=== PATIENT | female | born 1940 | race Caucasian/White ===

== ENCOUNTER → 2016-03-12 | Outpatient (CLI) | payer MEDICARE, BC ==
[2016-03-12 08:31] LABS: CHCM 32.1; HCT 38.7 % (34.0-46.0); HDW 2.47; HGB 12.3 gm/dL (11.4-16.0); MCH 28.8 pg (25.0-35.0); MCHC 31.8 g/dL (31.0-37.0); MCV 90.6 fL (80.0-100.0); Mean Platelet Volume 7.7; RBC 4.27 m/uL (3.80-5.40); RDW 12.9 % (11.5-15.5); WBC 6.6 k/uL (3.8-10.6)
[2016-03-12 10:03] LABS: Erythrocyte Sedimentation Rate 6 mm/hr (0-20)
== END | disposition home or self-care (01) ==
LOC: LABWHC1 07:44
PROVIDERS: ATTEND Orthopaedic Surgery
DX: Z96.611 Presence of right artificial shoulder joint (principal); Z48.89 Encounter for other specified surgical aftercare
CPT/HCPCS: 36415; 83520; 85027; 85652; 86140

== ENCOUNTER → 2016-05-27 | Outpatient (CLI) | payer MEDICARE, BC ==
[2016-05-27 08:20] LABS: Calcium 10.3 mg/dL (8.4-10.2); Potassium 4.2 mmol/L (3.5-5.1)
== END | disposition home or self-care (01) ==
LOC: LABWHC1 07:42
PROVIDERS: ATTEND Nurse Practitioner Family
DX: N18.3 Chronic kidney disease, stage 3 (moderate) (principal)
CPT/HCPCS: 36415; 80048

== ENCOUNTER → 2016-10-29 | Outpatient (CLI) | payer MEDICARE, BC ==
[2016-10-29 15:33] LABS: Appearance,Urine Clear (Clear); Basophils # (A) 0.1 k/uL (0-0.2); Basophils % (A) 1 %; Bilirubin,Urine Negative (Negative); CHCM 34.6; Eosinophils # (A) 0.4 k/uL (0-0.7); Eosinophils % (A) 5 %; Glucose,Urine (UA) Negative (Negative); HCT 37.5 % (34.0-46.0); HDW 2.61; HGB 12.5 gm/dL (11.4-16.0); Ketones,Urine Negative (Negative); Leukocyte Esterase,Urine Negative (Negative); Luc # (Auto) 0.16; Luc % (Auto) 2; Lymphocytes # (A) 2.2 k/uL (1.0-4.8); Lymphocytes % (A) 28 %; MCH 28.9 pg (25.0-35.0); MCHC 33.2 g/dL (31.0-37.0); Mean Platelet Volume 7.6; Monocytes # (A) 0.4 k/uL (0-1.0); Monocytes % (A) 5 %; Neutrophils # (A) 4.6 k/uL (1.3-7.7); Neutrophils % (A) 59 %; Nitrite,Urine Negative (Negative); PH, Urine 6.5 (5.0-8.0); Protein,Urine Negative (Negative); RBC 4.31 m/uL (3.80-5.40); RDW 13.7 % (11.5-15.5); Specific Gravity,Urine 1.004 (1.001-1.035); UA Billing (MACRO vs. MICRO) CHEM; Urobilinogen,Urine <2.0 mg/dL (<2.0); WBC 7.9 k/uL (3.8-10.6)
[2016-10-29 15:46] LABS: Calcium 9.9 mg/dL (8.4-10.2); Phosphorous 3.3 mg/dL (2.5-4.5); Potassium 4.1 mmol/L (3.5-5.1); Uric Acid 6.2 mg/dL (3.7-7.4)
[2016-10-29 15:55] LABS: % Iron Saturation 17.5 % (20-50)
== END | disposition home or self-care (01) ==
LOC: LABWHC1 15:10
PROVIDERS: ATTEND Nurse Practitioner Family
DX: N18.3 Chronic kidney disease, stage 3 (moderate) (principal); N39.0 Urinary tract infection, site not specified; D64.9 Anemia, unspecified; E21.3 Hyperparathyroidism, unspecified; M10.9 Gout, unspecified
CPT/HCPCS: 36415; 80048; 81003; 82306; 82728; 83540; 83550; 83735; 83970; 84100; 84550; 85025

== ENCOUNTER 2017-12-24 17:21 | Emergency (ER) | payer MEDICARE, BC ==
[2017-12-24 17:39] VITALS: BP 131/62; PULSE 64; RESP 20; TEMP 98.3
[2017-12-24] MEDS ORDERED: DIPH,PERTUS(ACELL)TETVAC-LF 0.5 ML VIAL IM ONE (17:40)
[2017-12-24] MEDS ORDERED: GELATIN SPONGE,ABSORB (LARGE) 1 EACH SPONGE TOPICAL STA (17:50)
--- NOTE | 2017-12-24 17:56 | ED ---
Wound/Laceration HPI - General Chief Complaint: Wound/Laceration Stated Complaint: finger laceration Time Seen by Provider: 12/24/17 17:39 Source: patient, RN notes reviewed Mode of arrival: ambulatory Limitations: no limitations - History of Present Illness Initial Comments: This is a 77-year-old female who presents to the emergency department with chief complaint of left thumb laceration. Patient states approximately half an hour prior to arrival she was removing a bolt from her lawnmower. She states that she slipped and cut a piece off of her left thumb. Patient is unsure when the last time she had her tetanus updated. She denies any other injuries or trauma. States that she takes a baby aspirin daily but no anticoagulants. Denies fevers or chills, chest pain or shortness breath, nausea or vomiting, numbness or tingling. - Related Data Home Medications Medication Instructions Recorded Confirmed Aspirin EC [Ecotrin] 81 mg PO BID 06/24/14 11/26/15 Atenolol [Tenormin] 50 mg PO BID 06/24/14 11/26/15 Atorvastatin [Lipitor] 40 mg PO HS 06/24/14 11/26/15 Cholecalciferol [Vitamin D3] 1,000 unit PO DAILY@1200 06/24/14 11/26/15 Gabapentin [Neurontin] 100 mg PO BID 06/24/14 11/26/15 Gemfibrozil [Lopid] 600 mg PO BID 06/24/14 11/26/15 amLODIPine [Norvasc] 5 mg PO BID 06/24/14 11/26/15 Albuterol Inhaler [Ventolin Hfa 1 - 2 puff INHALATION RT-Q6H PRN 06/07/15 Inhaler] Benazepril/Hydrochlorothiazide 1 tab PO DAILY 06/07/15 11/26/15 [Benazepril-Hctz 20-12.5 mg Tab] Budesonide/Formoterol Fumarate 2 puff INHALATION RT-BID PRN 06/07/15 11/26/15 [Symbicort 80-4.5 Mcg Inhaler] Carboxymethylcellulose Sodium 1 drop BOTH EYES HS 06/07/15 11/26/15 [Refresh Tears] Latanoprost Ophth [Xalatan 0.005%] 1 drops BOTH EYES HS 06/07/15 11/26/15 Acetaminophen [Tylenol Arthritis] 650 mg PO BID PRN 11/13/15 11/26/15 Previous Rx's Medication Instructions Recorded Docusate [Colace] 100 mg PO BID #60 capsule 11/27/15 HYDROcodone/APAP 7.5-325MG [[place] 1 - 2 each PO Q6HR PRN #90 tab 11/27/15 7.5-325] Allergies Allergy/AdvReac Type Severity Reaction Status Date / Time erythromycin base Allergy Unknown Verified 12/24/17 17:39 niacin Allergy Rash/Hives Verified 12/24/17 17:39 nickel Allergy per Verified 12/24/17 17:39 allergy testing Penicillins Allergy Anaphylaxis Verified 12/24/17 17:39 doxycycline AdvReac Nausea & Verified 12/24/17 17:39 Vomiting Review of Systems ROS Statement: Those systems with pertinent positive or pertinent negative responses have been documented in the HPI. ROS Other: All systems not noted in ROS Statement are negative. Past Medical History Past Medical History: COPD, Eye Disorder, Hyperlipidemia, Hypertension, Musculoskeletal Disorder, Osteoarthritis (OA) Additional Past Medical History / Comment(s): spinal stenosis,past hx. heart murmur, neuropathy, glaucoma, decreased kidney function-sees Dr Ramos, recent tx. for UTI in August History of Any Multi-Drug Resistant Organisms: None Reported Past Surgical History: Back Surgery, Cholecystectomy, Orthopedic Surgery Additional Past Surgical History / Comment(s): rotator cuff repair right, TRS Past Anesthesia/Blood Transfusion Reactions: No Reported Reaction Past Psychological History: No Psychological Hx Reported Smoking Status: Former smoker Past Alcohol Use History: None Reported Past Drug Use History: None Reported - Past Family History Mother Family Medical History: Cancer Brother(s) Family Medical History: Cancer General Exam - General Exam Comments Initial Comments: General: Awake and alert, well-developed; in no apparent distress. HEENT: Head atraumatic, normocephalic. Pupils are equal, round and reactive to light. Extraocular movements intact. Oropharynx moist without erythema or exudate. Neck: Supple. Normal ROM. Cardiovascular: Regular rate and rhythm. No murmurs, rubs or gallops. Chest symmetrical. Respiratory: Lungs clear to auscultation bilaterally. No wheezes, rales or rhonchi. Normal respiratory effort with no use of accessory muscles. Musculoskeletal: Normal ROM of the left thumb. Approximately 0.5cm superficial skin avulsion to the distal lateral palmar surface left thumb. Sensation is intact. Radial pulses are 2+ equal and palpable bilaterally. Skin: [place], warm and dry with skin avulsion as noted above. Neurological: Alert and oriented x3. CN II-XII grossly intact. Speech is fluent and answers are appropriate. No focal neuro deficits. Psychiatric: Normal mood and affect. No overt signs of depression or anxiety noted. Limitations: no limitations Course Vital Signs 12/24/17 17:37 Temperature 98.3 F Pulse Rate 64 Respiratory 20 Rate Blood Pressure 131/62 O2 Sat by Pulse 97 Oximetry Medical Decision Making - Medical Decision Making This is a 77-year-old female who presents to the emergency department with chief complaint of left thumb laceration. Patient sustained an approximately 0.5 cm in length superficial skin avulsion to the distal left thumb. Wound is cleansed with sterile water and iodine. Gelfoam and a dressing is placed. Recommended leaving on for 2-3 days. Patient is made up-to-date with tetanus vaccination. She is in no acute distress and will be discharged this time. She is in agreement with plan and voices understanding. All questions were answered. Disposition Clinical Impression: Avulsion of skin of finger Disposition: HOME SELF-CARE Condition: Good Instructions: Skin Avulsion (ED) Additional Instructions: Please keep the Gelfoam and dressing in place for up to 76 hours. Please follow up with primary care provider within 1-2 days. Return to emergency department if symptoms should worsen or any concerns arise. Is patient prescribed a controlled substance at d/c from ED?: No Referrals: Aris Fuchs DO [Primary Care Provider] - 1-2 days Time of Disposition: 18:08
== END 2017-12-24 18:27 | disposition home or self-care (01) ==
LOC: EC 17:21
DX: S61.012A Laceration without foreign body of left thumb without damage to nail, initial encounter (principal); E78.5 Hyperlipidemia, unspecified; I10 Essential (primary) hypertension; J44.9 Chronic obstructive pulmonary disease, unspecified; G62.9 Polyneuropathy, unspecified; M19.90 Unspecified osteoarthritis, unspecified site; H40.9 Unspecified glaucoma; Z87.891 Personal history of nicotine dependence; Z88.0 Allergy status to penicillin; Z88.1 Allergy status to other antibiotic agents; Z88.8 Allergy status to other drugs, medicaments and biological substances; Z91.048 Other nonmedicinal substance allergy status; Z79.82 Long term (current) use of aspirin; Z79.899 Other long term (current) drug therapy; Z23 Encounter for immunization; W45.8XXA Other foreign body or object entering through skin, initial encounter; Y93.89 Activity, other specified; Y92.89 Other specified places as the place of occurrence of the external cause
CPT/HCPCS: 90471; 90715; 99282

== ENCOUNTER → 2018-05-31 | Outpatient (CLI) | payer MEDICARE, BC ==
--- NOTE | 2018-05-31 12:36 | CT ---
EXAMINATION TYPE: CT brain wo/w con DATE OF EXAM: 05/31/2018 COMPARISON: None. HISTORY: Headaches on and off for 7 months. No history of migraines. No known injury. CT DLP: 2279 mGycm Automated exposure control for dose reduction was used. CONTRAST: CT scan of the head is performed without and with IV Contrast, patient injected with 50 mL of Isovue 300. FINDINGS: Noncontrast images show no acute intracranial hemorrhage or midline shift. There is mild ventricular and sulcal prominence. Postcontrast images show no suspicious enhancing intraparenchymal mass. There is absent or hypoplastic right A1 segment with filling of right A2 segment due to patent anterior com municating artery, normal variant. Some mild low-attenuation in periventricular white matter is prese nt. There is completely opacified right maxillary sinus with heterogeneous material and ossification. Remainder of paranasal sinuses are clear. Persistent anterior metopic suture is seen. High left fron william parietal region there is ossific prominence could reflect ossified meningioma or osteochondroma a xial image 44 and coronal image 36. This measures roughly 2.5 x 1.6 cm axial image 44 IMPRESSION: As above. Right maxillary sinus disease noted. High left parietal osteochondroma or ossif ied meningioma noted.
== END | disposition home or self-care (01) ==
LOC: RADCTMAIN 10:24
PROVIDERS: ATTEND Family Medicine
DX: D16.4 Benign neoplasm of bones of skull and face (principal); Z13.9 Encounter for screening, unspecified
CPT/HCPCS: 82565; 84520; 70470; 36415; Q9967

== ENCOUNTER → 2018-10-11 | Outpatient (CLI) | payer MEDICARE, BC ==
--- NOTE | 2018-10-12 02:30 | MR ---
EXAMINATION TYPE: MR brain wo con DATE OF EXAM: 10/11/2018 COMPARISON: 06/10/2018 HISTORY: Abnormal findings Weakness Standard multiplanar, multisequence MRI departmental protocol Multiplanar, multisequence images of the brain were acquired. Diffusion weighted imaging was performe d. FINDINGS: There is cerebral cortical atrophy. There is no mass effect nor midline shift. There is no sign of intracranial hemorrhage. There is some coalescent punctate areas of signal loss measuring 4 x 1.5 cm in the left posterior parietal lobe convexity. This appears extra-axial and could relate to v ascular malformation and calcification. There is no evidence of adjacent cerebral edema. There is muc osal thickening right maxillary sinus. Brainstem is intact. Corpus callosum is intact. Sella turcica appears normal. On the FLAIR images there are a few scattered foci of increased signal around the lateral ventricles that measure up to 5 mm. Total number is less than 10. IMPRESSION: Cerebral atrophy. Right maxillary sinusitis. Nonspecific scattered periventricular white matter foci. Low signal left parietal lesion could relate to a vascular malformation unchanged compared to old MR scan. Lesion appears benign.
== END | disposition home or self-care (01) ==
LOC: RADMRIMAIN 09:24
PROVIDERS: ATTEND Family Medicine
DX: G31.9 Degenerative disease of nervous system, unspecified (principal); R90.89 Other abnormal findings on diagnostic imaging of central nervous system
CPT/HCPCS: 70551

== ENCOUNTER → 2019-01-06 | Outpatient (CLI) | payer MEDICARE, BC ==
--- NOTE | 2019-01-07 04:24 | XR ---
EXAMINATION TYPE: XR lumbar spine 2 or 3V DATE OF EXAM: 01/06/2019 COMPARISON: NONE HISTORY: 78-year-old female with low back pain TECHNIQUE: 3 views FINDINGS: Degenerated levoconvex scoliosis of the lumbar spine. 5 lumbar type vertebral bodies. The degree of c urvature limits the assessment but there appears to be moderate to severe disc height loss at L3-S1 l evels with endplate spondylosis. Facet arthropathy throughout. Vertebral body heights are preserved a nd alignment is maintained. Dense atherosclerotic calcifications throughout the abdominal aorta. IMPRESSION: 1. Degenerated levoconvex scoliosis. 2. Hypertrophic facet arthropathy throughout. No vertebral compression collapse or malalignment. 3. Moderate to advanced degenerative disc disease L3-S1 levels.
== END | disposition home or self-care (01) ==
LOC: RADXRMAIN 16:18
PROVIDERS: ATTEND Family Medicine
DX: M51.37 Other intervertebral disc degeneration, lumbosacral region (principal); M46.96 Unspecified inflammatory spondylopathy, lumbar region; M41.86 Other forms of scoliosis, lumbar region
CPT/HCPCS: 72100

== ENCOUNTER → 2019-09-14 | Outpatient (CLI) | payer MEDICARE, BC ==
--- NOTE | 2019-09-14 12:29 | MR ---
EXAMINATION TYPE: MR brain wo con DATE OF EXAM: 09/14/2019 9:06 AM COMPARISON: 10/11/2018 HISTORY: Known Menengioma, Headaches, Dizziness and Ringing in Ears. Multiplanar and multispin-echo imaging of the brain was performed . The ventricles, basal cisterns and sulci overlying the cerebral convexities demonstrate mild enlargem ent. Remote deep white matter insults. High left parietal extra-axial lesion is redemonstrated measures 4.2 by 2.0 x 0.8 cm versus 4 x 1.5 c m previously. Patient has known meningioma. Acute intracranial hemorrhage or extra-axial collection is not evident. The brain parenchyma reveals no abnormal increased signal. No acute edema is identified. Chronic sinusitis changes. Mastoid air cells are well-aerated. IMPRESSION: No change in known meningioma.
== END | disposition home or self-care (01) ==
LOC: RADMRIMAIN 08:19
PROVIDERS: ATTEND Family Medicine
DX: D32.0 Benign neoplasm of cerebral meninges (principal)
CPT/HCPCS: 70551

== ENCOUNTER → 2020-08-27 | Outpatient (CLI) | payer MEDICARE, BC ==
--- NOTE | 2020-08-28 00:42 | MR ---
EXAMINATION TYPE: MR brain wo con DATE OF EXAM: 08/27/2020 COMPARISON: 09/14/2019 HISTORY: Benign neoplasm cerebral meninges Multiplanar multiecho imaging of the brain was performed without contrast. There is diffuse cerebral atrophy. There is no mass effect nor midline shift. There is no sign of int racranial hemorrhage. Diffusion images show no evidence of an acute infarct. There is mild increased signal around the lateral ventricles in the white matter on the T2 and FLAIR images. This is concentr ated mainly around the occipital horns and frontal horns of the lateral ventricles. This measures up to 8 mm in thickness. The brainstem appears intact. Cerebellum appears intact. Sella turcica appears intact. Corpus callosu m is intact. IMPRESSION: Cerebral atrophy. No evidence of an acute infarct. Mild periventricular white matter changes are nonspecific. This could relate to some microvascular is chemia or demyelinating disease. Brain appears not significantly different than old exam.
== END | disposition home or self-care (01) ==
LOC: RADMRIMAIN 07:20
PROVIDERS: ATTEND Family Medicine
DX: D32.0 Benign neoplasm of cerebral meninges (principal); G31.9 Degenerative disease of nervous system, unspecified
CPT/HCPCS: 70551

== ENCOUNTER → 2020-09-26 | Day surgery (SDC) | payer MEDICARE, BC ==
[2020-09-25 08:59] VITALS: BMI 26.5
[~2020-09-26] MED LIST: BALANCED SALT IRRIG SOLN COMB2 15 ML IRRIG.SOLN INTRAOCULA ONE; CYCLOPENTOLATE 1% OPHTH SOLN 2 ML BTL OP PRN; CYCLOPENTOLATE 1% OPHTH SOLN 2 ML BTL RIGHT EYE ONE; DUOVISC KIT (GREEN BOX) INTRAOCULA ONE; EPINEPHrine (PF) 0.3 ML in BALANCED SALT IRRIG SOLN COMB2 500 ML IRRIGATION ONE; LACTATED RINGERS 1,000 ML IV SCH; LIDOCAINE 1% (10MG/ML) FOR IV START INTRADERMA PRN; LIDOCAINE 1% (PF) 10MG/ML VIAL SQ ONE; MIDAZOLAM 2 MG/2 ML VIAL ONE; MOXIFLOXACIN HCL 0.5% DROPS 3 ML BTL OP PRN; PHENYLEPHRINE 2.5% OPHTH DRP 2ML OP PRN; PILOCARPINE 2% OPHTH DROPS 15 ML BTL RIGHT EYE SCH; TETRACAINE 0.5% OPHTH (PF) DROPS 4 ML BTL OP PRN; TIMOLOL 0.5% OPHTH DROPS 5 ML BTL OP PRN; TRYPAN BLUE 0.06% SYRINGE 0.5 ML SYRINGE INTRAOCULA ONE; fentaNYL (PF) 50 MCG/ML 2 ML AMP ONE
[2020-09-26 07:40] VITALS: RESP 16; TEMP 97.3
--- NOTE | 2020-09-26 08:40 | P.OP ---
Date of Procedure: 09/26/20 Preoperative Diagnosis: NS & POAG mild Postoperative Diagnosis: same Procedure(s) Performed: PIOL, & goniotomy Implants: MX60E 20.50 Anesthesia: MAC Surgeon: Dedrick Hardy Pathology: none sent Condition: stable Disposition: same day Indications for Procedure: blurry vision and glaucoma control Operative Findings: no complications
[2020-09-26 09:12] VITALS: BP 158/68; PULSE 54
--- NOTE | 2020-09-27 09:19 | OP ---
OPERATIVE REPORT DATE OF SURGERY: September 26, 2020 PROCEDURES: Phacoemulsification of cataract and intraocular lens implant of the right eye with goniotomy. 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 SURGEON: Dr. Dedrick Hardy. ANESTHESIA: Topical. ESTIMATED BLOOD LOSS: Less than 5 mL. SPECIMEN TAKEN: None. NARRATIVE: After obtaining the appropriate consent, the patient was brought to the operating room. She was placed under cardiac monitoring, then prepped and draped in the usual sterile manner. She was approached from her right temporal side and at the 11 o'clock position an MVR blade was used to create a paracentesis port. Through this opening, 1% Xylocaine MPF 50:50 mix with balanced salt solution was injected into the anterior chamber. This was followed by installation of Trypan blue which was allowed to stay in the eye for about 1 minute. This was irrigated away with balanced salt solution and the anterior chamber was then stabilized with Viscoat. A temporal incision with a 2.5 mm keratome was used to create a self-sealing corneal flap incision. The patient was then asked to rotate her head approximately 45 degrees to her left and Gonio prism was placed on the patient's eye. Identification of the trabecular meshwork was easily made and using a ricardo and meet method, a goniotomy knife was used to create a goniotomy between the clock hours of approximately 4:30 and 1 o'clock on the nasal aspect of the patient's eye. A small amount of bleeding was encountered as would typically be expected. The patient was then asked to rotate her head back to the normal supine position and a cystotome was introduced to begin a continuous tear capsulorrhexis which was completed using the Utrata forceps. Hydrodissection and hydrodelineation of the lens were accomplished with balanced salt solution. Phacoemulsification of the lens utilizing phaco chop was accomplished in 28.1 seconds at 12% power. Additional Xylocaine MPF was instilled into the anterior chamber. This was followed by removal of the remaining cortex along with careful polishing of the posterior capsule in the capsule vacuum mode. Additional Provisc was then used to stabilize the capsular bag and a Bausch and Lomb MX60E 20.5 diopter posterior chamber intraocular lens was then injected into the capsular bag without difficulty. The remaining viscoelastic was removed from in and around the intraocular lens and the anterior chamber. The temporal incision was confirmed watertight and the eye was brought to slightly above normal intra-ocular pressure by palpation with balanced salt solution from the paracentesis port. She then received 2 drops of 0.5% timolol followed by 2 drops of moxifloxacin as well as 2% pilocarpine. She was then lightly patched and shielded in the usual manner. She was then returned to recovery in good condition. MMYOUNG / IJN: [id number] /
== END ==
LOC: OR 06:59
PROVIDERS: ATTEND Ophthalmology
DX: H25.11 Age-related nuclear cataract, right eye (principal); I10 Essential (primary) hypertension; E78.5 Hyperlipidemia, unspecified; J44.9 Chronic obstructive pulmonary disease, unspecified; M48.00 Spinal stenosis, site unspecified
CPT/HCPCS: 65820; C1780; J2250; J0171; J3010; J2001

== ENCOUNTER 2020-10-10 09:54 | Day surgery (SDC) | payer MEDICARE, BC ==
[2020-10-08 11:47] VITALS: BMI 26.5
[~2020-10-10 09:54] MED LIST changes: -BALANCED SALT IRRIG SOLN COMB2 15 ML IRRIG.SOLN INTRAOCULA ONE; -CYCLOPENTOLATE 1% OPHTH SOLN 2 ML BTL RIGHT EYE ONE; -DUOVISC KIT (GREEN BOX) INTRAOCULA ONE; -EPINEPHrine (PF) 0.3 ML in BALANCED SALT IRRIG SOLN COMB2 500 ML IRRIGATION ONE; -LIDOCAINE 1% (10MG/ML) FOR IV START INTRADERMA PRN; -LIDOCAINE 1% (PF) 10MG/ML VIAL SQ ONE; -MIDAZOLAM 2 MG/2 ML VIAL ONE; +PILOCARPINE 2% OPHTH DROPS 15 ML BTL OP PRN; -PILOCARPINE 2% OPHTH DROPS 15 ML BTL RIGHT EYE SCH; -TRYPAN BLUE 0.06% SYRINGE 0.5 ML SYRINGE INTRAOCULA ONE; -fentaNYL (PF) 50 MCG/ML 2 ML AMP ONE
[2020-10-10 10:40] VITALS: RESP 16; TEMP 97.1
[2020-10-10] MEDS ORDERED: LIDOCAINE 1% (10MG/ML) FOR IV START INTRADERMA ONE (10:43)
[2020-10-10] MEDS ORDERED: MIDAZOLAM 2 MG/2 ML VIAL ONE (11:20)
[2020-10-10] MEDS ORDERED: fentaNYL (PF) 50 MCG/ML 2 ML AMP ONE (11:20)
[2020-10-10] MEDS ORDERED: HYALURONATE SODIUM INTRAOCULAR 1 EACH SYRINGE (12MG/ML) INTRAOCULA ONE (11:38)
[2020-10-10] MEDS ORDERED: BALANCED SALT IRRIG SOLN COMB2 15 ML IRRIG.SOLN IRRIGATION ONE (11:39)
[2020-10-10] MEDS ORDERED: LIDOCAINE 1% (PF) 10MG/ML VIAL MISCELLANE ONE (11:39)
[2020-10-10] MEDS ORDERED: EPINEPHrine (PF) 0.3 ML in BALANCED SALT IRRIG SOLN COMB2 500 ML IRRIGATION ONE (11:42)
--- NOTE | 2020-10-10 11:58 | P.OP ---
Date of Procedure: 10/10/20 Preoperative Diagnosis: NS & POAG moderate Postoperative Diagnosis: same Procedure(s) Performed: PIOL & goniotomy, OS Implants: MX60E 22.50 Anesthesia: MAC Surgeon: Dedrick Hardy Pathology: none sent Condition: stable Disposition: same day Indications for Procedure: blurry visoin and improved glaucoma control Operative Findings: no complications
[2020-10-10 12:12] VITALS: PULSE 52
[2020-10-10 12:18] VITALS: BP 161/69
--- NOTE | 2020-10-10 19:48 | OP ---
OPERATIVE REPORT DATE OF SURGERY: October 10, 2020 PROCEDURES: Phacoemulsification of cataract and intraocular lens implant of the left eye with goniotomy. PREOPERATIVE DIAGNOSES: Nuclear sclerosis and primary open-angle glaucoma, moderate stage. POSTOPERATIVE DIAGNOSES: Nuclear sclerosis and primary open-angle glaucoma, moderate stage. SURGEON: Dr. Dedrick Hardy. ANESTHESIA: Topical. ESTIMATED BLOOD LOSS: Less than 5 mL. SPECIMEN TAKEN: None. NARRATIVE: After obtaining the appropriate consent, the patient was brought to the operating room. There she was placed under cardiac monitoring, prepped and draped in the usual sterile manner. She was approached from her left temporal side. At the 5 o'clock position, an MVR blade was used to create a paracentesis port. Through this opening 1% Xylocaine MPF was instilled into the anterior chamber. This was followed by installation of Trypan blue which was irrigated away after 1 minute. Viscoat was then used to stabilize the anterior chamber. At the 3 o'clock position a 2.5 mm keratome was used to create a self- sealing corneal flap incision. At this point, the patient was asked to rotate her head approximately 45 degrees to her right while maintaining a gaze in that general direction. Using a [place] dual blade goniotomy knife and using a ricardo and meet method the nasal trabecular meshwork was incised and removed for approximately 5 o'clock hours on the nasal side of the patient's eye. Moderate bleeding occurred at the incision site as would normally be expected. She was then asked to rotate back to the normal supine position. Additional viscoelastic was used to tamponade the bleeding and maintain clear in the anterior chamber. A cystotome was introduced to begin a continuous tear capsulorrhexis which was then completed using the Utrata forceps. Hydrodissection and hydrodelineation of the lens were accomplished with balanced salt solution. Phacoemulsification of the lens utilizing phaco chop was accomplished in 13.07 seconds at 15% power. Additional lidocaine MPF was instilled into the anterior chamber. This was followed by removal of the remaining cortex as well as careful polishing of the posterior capsule in capsule vacuum mode. Additional Amvisc was then used to stabilize the capsular bag and a Bausch and Lomb MX 60E 22.5 diopter posterior chamber intraocular lens was then inserted into the capsular bag without difficulty. The remaining viscoelastic was removed from in and around the intraocular lens as well as the anterior chamber. The eye was then brought to slightly above normal intraocular pressure through the paracentesis port all while ensuring the incisions remained watertight. The patient then received 2 drops of 0.5% timolol and 2 drops of 0.5% moxifloxacin. She was then lightly patched and shielded in the usual manner. There were no complications from the procedure. She tolerated the procedure well and was returned to outpatient recovery in good condition. MMYOUNG / SARABJIT: [id number] /
== END 2020-10-10 12:41 | disposition home or self-care (01) ==
LOC: OR 09:54
PROVIDERS: ATTEND Ophthalmology
DX: H25.12 Age-related nuclear cataract, left eye (principal); J44.9 Chronic obstructive pulmonary disease, unspecified; K21.9 Gastro-esophageal reflux disease without esophagitis; I10 Essential (primary) hypertension; E78.5 Hyperlipidemia, unspecified; N28.9 Disorder of kidney and ureter, unspecified
CPT/HCPCS: 65820; 66984; C1780; J2250; J0171; J3010; J2001

== ENCOUNTER → 2020-11-08 | Outpatient (CLI) | payer MEDICARE, BC ==
--- NOTE | 2020-11-08 08:35 | XR ---
EXAMINATION TYPE: XR Hip Complete RT DATE OF EXAM: 11/08/2020 CLINICAL HISTORY: Right hip and groin pain. TECHNIQUE: AP and frogleg views of the right hip are obtained. COMPARISON: CT abdomen and pelvis August 31, 2015. FINDINGS: There is no acute fracture/dislocation evident in the right hip. [id number] axial albina int space loss. Mild spurring on frog-leg view inferior medial articulation. Synovial calcification s uperolateral aspect of acetabulum could be idiopathic in etiology or related to CPPD, correlate clini courtney. Mild medial groin arterial vascular calcification. Femoral head shape maintained. IMPRESSION: As above.
--- NOTE | 2020-11-08 08:43 | XR ---
EXAMINATION TYPE: XR cervical spine comp DATE OF EXAM: 11/08/2020 TECHNIQUE: Frontal, lateral, oblique, and open mouth view of the cervical spine are obtained. HISTORY: M54.12 COMPARISON: None FINDINGS: The cervical spine is visualized in its entirety from C1 thru the top of T1 level, there i s slight grade 1 retrolisthesis C5 on C6. The pre-vertebral soft tissue appears within normal limits . The C1-C2 articulation is within normal limits on the open mouth view. Vertebral body heights are maintained. Mild disc space narrowing with mild/moderate anterior spurring C4-C5 and C5-C6 levels Th e oblique images are within normal limits. Moderate calcified plaque bilateral carotid bulb level not ed in the overlying soft tissue. IMPRESSION: As above.
== END | disposition home or self-care (01) ==
LOC: RADXRMAIN 07:52
PROVIDERS: ATTEND Family Medicine
DX: M76.891 Other specified enthesopathies of right lower limb, excluding foot (principal)
CPT/HCPCS: 72050; 73502

== ENCOUNTER → 2021-10-30 | Outpatient (CLI) | payer MEDICARE, BC ==
[~2021-10-30] MED LIST changes: -CYCLOPENTOLATE 1% OPHTH SOLN 2 ML BTL OP PRN; +DENOSUMAB 60 MG/ML 1 ML SYRINGE SQ ONE; -LACTATED RINGERS 1,000 ML IV SCH; -MOXIFLOXACIN HCL 0.5% DROPS 3 ML BTL OP PRN; -PHENYLEPHRINE 2.5% OPHTH DRP 2ML OP PRN; -PILOCARPINE 2% OPHTH DROPS 15 ML BTL OP PRN; -TETRACAINE 0.5% OPHTH (PF) DROPS 4 ML BTL OP PRN; -TIMOLOL 0.5% OPHTH DROPS 5 ML BTL OP PRN
[2021-10-30 10:58] VITALS: BP 156/57; PULSE 57; RESP 16; TEMP 98.2
== END ==
LOC: PROCWHC3 10:33
PROVIDERS: ATTEND Family Medicine
DX: M81.0 Age-related osteoporosis without current pathological fracture (principal); Z88.1 Allergy status to other antibiotic agents; Z88.0 Allergy status to penicillin; Z88.9 Allergy status to unspecified drugs, medicaments and biological substances; Z88.5 Allergy status to narcotic agent; Z87.891 Personal history of nicotine dependence
CPT/HCPCS: 96372; J0897

== ENCOUNTER → 2021-11-18 | Outpatient (CLI) | payer MEDICARE, BC ==
--- NOTE | 2021-11-18 19:15 | MR ---
EXAMINATION TYPE: MR brain wo/w con DATE OF EXAM: 11/18/2021 COMPARISON: 08/27/2020 HISTORY: 81-year-old female D32.0, Benign neoplasm cerebral meninges follow-up comparison. TECHNIQUE: Multiplanar, multisequence images of the brain and brainstem were acquired before and aft er administration of 6 mL IV Gadavist. Diffusion weighted imaging is performed. FINDINGS: Redemonstrated is irregular extra-axial lesion along the left superior frontoparietal convexity. Ofelia elation with the patient's 05/31/2018 CT shows that this is a calcified/ossified lesion. This is bright on T1 and loses signal on T2 fat sat suggesting the presence of fatty marrow. The lesion measures 4. 6 cm AP by 2.0 cm wide by 1.0 cm craniocaudal. This is in comparison to 4.6 x 2.0 x 1.1 cm on 08/28/19 21, not significantly changed. There is minimal associated patchy internal enhancement. There is no evidence for acute infarction. There is moderate volume loss overlying the cerebral convexities. No hydrocephalus. No midline shift. No extra-axial fluid collection seen. T2/FLAIR weighted sequences show mild to moderate patchy periventricular and deep white matter bright signal change in both cerebral hemispheres remains unchanged. Midline structures demonstrate normal morphology. The craniocervical junction is normal. Postcontrast images show moderate mucosal thickening right maxillary sinus and anterior bilateral eth moid air cells. There is additional fluid opacification throughout the right maxillary sinus, similar to 08/27/2020. There is also ongoing opacification of bilateral ethmoid air cells. Globes appear intact. IMPRESSION: 1. Unchanged calcified extra-axial lesion along the superior left cerebral convexity measuring 4.6 x 2.0 x 1.0 cm. This shows mild patchy postcontrast enhancement. Probable meningioma. No new enhancing lesions are seen. 2. Moderate cerebral cortical atrophy and mild burden of chronic small vessel ischemic disease. 3. Correlate for acute on chronic right maxillary sinusitis. Moderate chronic ethmoid sinus disease. 4. Fluid remains trapped in the bilateral mastoid air cells. Correlate for any mastoid pain to exclud e mastoiditis.
== END | disposition home or self-care (01) ==
LOC: RADMRIMAIN 11:43
PROVIDERS: ATTEND Family Medicine
DX: D32.0 Benign neoplasm of cerebral meninges (principal); G31.9 Degenerative disease of nervous system, unspecified; I67.82 Cerebral ischemia; J32.8 Other chronic sinusitis
CPT/HCPCS: 70553; A9585

== ENCOUNTER 2022-06-20 10:14 | Day surgery (SDC) | payer MEDICARE, BC ==
[~2022-06-20 10:14] MED LIST changes: -DENOSUMAB 60 MG/ML 1 ML SYRINGE SQ ONE; +LACTATED RINGERS 1,000 ML IV SCH
[2022-06-20 10:35] VITALS: TEMP 97.2
[2022-06-20] MEDS ORDERED: LIDOCAINE 2% INJ 20 MG/ML (2 ML VIAL) ONE (11:04)
[2022-06-20] MEDS ORDERED: PROPOFOL 10 MG/ML 20 ML VIAL IV ONE (11:04)
--- NOTE | 2022-06-20 11:27 | P.PCN ---
Date of Procedure: 06/20/22 Procedure(s) Performed: BRIEF HISTORY: Patient is a 81-year-old pleasant male scheduled for an elective colonoscopy as a part of evaluation of chronic diarrhea for the last 3-4 months duration. She is been having bulb was evidence of bleeding for the day which are loose to watery in consistency but no blood in the stool. She also has family history of colon cancer that is a mother at age 83. PROCEDURE PERFORMED: Colonoscopy with random biopsy. PREOPERATIVE DIAGNOSIS: Chronic diarrhea and family history of colon cancer. IV sedation per Anesthesia. PROCEDURE: After informed consent was obtained, the patient, was brought into the endoscopy unit. IV sedation was administered by Anesthesia under continuous monitoring. Digital rectal examination was normal. Initially the Olympus CF-160 flexible video colonoscope was then inserted in the rectum, gradually advanced into the sigmoid: Further advancement was not possible. Scope was manipulated colonoscopy was then inserted in the rectum and gradually advanced into the cecum without any difficulty. Careful examination was performed as the scope was gradually being withdrawn. Ileocecal valve and the appendiceal orifice were visualized and appeared normal. Prep was excellent. Mucosa of the cecum, ascending colon, transverse colon, descending colon, sigmoid colon, and rectum appeared normal. Scattered sigmoid diverticula seen. Biopsies were done from ascending and descending colon to rule out microscopic/collagenous colitis Retroflexion was performed in the rectum and no lesions were seen. The patient tolerated the procedure well. IMPRESSION: Normal-appearing colon from rectum to cecum with no ulcer colorectal neoplasia. Scattered sigmoid diverticulosis. RECOMMENDATIONS: Findings of this examination were discussed with the patient as well as a family. She was advised to follow with the biopsy results. In the meantime I suggested that she use [id number] Imodium as needed for the chronic diarrhea.
[2022-06-20 11:50] VITALS: BP 155/72
[2022-06-20 12:07] VITALS: PULSE 69; RESP 17
== END 2022-06-20 12:25 | disposition home or self-care (01) ==
LOC: ORWHC2ENDO 10:14
PROVIDERS: ATTEND Internal Medicine Gastroenterology
DX: K52.9 Noninfective gastroenteritis and colitis, unspecified (principal); K57.30 Diverticulosis of large intestine without perforation or abscess without bleeding; Z80.0 Family history of malignant neoplasm of digestive organs; I10 Essential (primary) hypertension; E78.5 Hyperlipidemia, unspecified; N28.9 Disorder of kidney and ureter, unspecified; J44.9 Chronic obstructive pulmonary disease, unspecified; Z90.49 Acquired absence of other specified parts of digestive tract; Z98.890 Other specified postprocedural states; Z79.51 Long term (current) use of inhaled steroids; Z79.899 Other long term (current) drug therapy; Z88.0 Allergy status to penicillin; Z88.5 Allergy status to narcotic agent; Z88.8 Allergy status to other drugs, medicaments and biological substances
CPT/HCPCS: 88305; 45380; J2704; J2001

== ENCOUNTER → 2022-11-06 | Outpatient (CLI) | payer MEDICARE, BC ==
[~2022-11-06] MED LIST changes: +DENOSUMAB 60 MG/ML 1 ML SYRINGE SQ NR; -LACTATED RINGERS 1,000 ML IV SCH
[2022-11-06 13:55] VITALS: BP 163/73; PULSE 66; RESP 16; TEMP 98
== END ==
LOC: PROCWHC3 13:07
PROVIDERS: ATTEND Family Medicine
DX: M81.0 Age-related osteoporosis without current pathological fracture (principal)
CPT/HCPCS: 96372; J0897

== ENCOUNTER → 2023-03-30 | Day surgery (SDC) | payer MEDICARE, BC ==
[~2023-03-30] MED LIST changes: +ALPRAZolam 0.25 MG TAB PO PRN; +ALPRAZolam 0.5 MG TAB PO PRN; +ASPIRIN 325 MG TAB PO STA; -DENOSUMAB 60 MG/ML 1 ML SYRINGE SQ NR; +HEPARIN SODIUM 1,000 UN/ML (10ML VL) IV ONE; +IOPAMIDOL-370 100ML BTL INJ ONE; +LIDOCAINE 1% INJ 10MG/ML (20 ML MDV) ONE; +LIDOCAINE 1% INJ 10MG/ML (30 ML VIAL-PF) SQ ONE; +MIDAZOLAM 2 MG/2 ML VIAL IVP ONE; +NITROGLYCERIN SL TABS 0.4 MG TAB SUBLINGUAL PRN; +RX INFO: IV CONTRAST WAS GIVEN 1 EACH MISC MISCELLANE PRN; +SODIUM CHLORIDE 0.9% 1,000 ML IV ONE; +SODIUM CHLORIDE 0.9% 1,000 ML IV SCH; +SODIUM CHLORIDE 0.9% 1,000 ML in EMPTY BAG 1 BAG IV SCH; +VERAPAMIL 2.5 MG/ML 2 ML AMP ONE; +VERAPAMIL SYRINGE (5 MG/10 ML) INTRAARTER ONE
[2023-03-30 08:13] VITALS: RESP 16; TEMP 97.2
[2023-03-30 08:25] LABS: Basophils # (A) 0.1 k/uL (0-0.2); Basophils % (A) 1 %; Eosinophils # (A) 0.2 k/uL (0-0.7); Eosinophils % (A) 2 %; HCT 41.8 % (34.0-46.0); HGB 14.2 gm/dL (11.4-16.0); Lymphocytes # (A) 1.9 k/uL (1.0-4.8); Lymphocytes % (A) 22 %; MCH 30.5 pg (25.0-35.0); MCHC 33.9 g/dL (31.0-37.0); MCV 89.8 fL (80.0-100.0); Mean Platelet Volume 8.6; Monocytes # (A) 0.5 k/uL (0-1.0); Monocytes % (A) 6 %; Neutrophils # (A) 5.9 k/uL (1.3-7.7); Neutrophils % (A) 68 %; Platelet Count 224 k/uL (150-450); RBC 4.66 m/uL (3.80-5.40); RDW 12.5 % (11.5-15.5); WBC 8.6 k/uL (3.8-10.6)
[2023-03-30 08:39] LABS: African American GFR (CKD) 41 (>60 ml/min/1.73 sqM); Anion Gap 11 mmol/L; Blood Urea Nitrogen 29 mg/dL (7-17); Calcium 9.6 mg/dL (8.4-10.2); Carbon Dioxide 25 mmol/L (22-30); Chloride 103 mmol/L (98-107); Glucose 94 mg/dL (74-99); Non-African American GFR(CKD) 36 (>60 ml/min/1.73 sqM); Potassium 3.6 mmol/L (3.5-5.1); Sodium 139 mmol/L (137-145)
--- NOTE | 2023-03-30 09:04 | P.PCN ---
Date of Procedure: 03/30/23 Operative Findings: CARDIAC CATHETERIZATION PERFORMING PHYSICIAN: Silvio Alejandra MD, RPVI PROCEDURE PERFORMED: 1. Selective right and left coronary angiogram 2. Left heart catheterization 3. Ultrasound-guided access of the right radial artery INDICATION: Chest discomfort and shortness of breath associated with abnormal myocardial perfusion imaging stress a showed inferolateral ischemia COMPLICATION: None APPROACH: Right radial artery LEVEL OF SEDATION: Moderate with a sedation length of 12 minutes PROCEDURE DESCRIPTION: After obtaining an informed consent, the patient was brought to cardiac manufacturing laborer. Local anesthesia was performed using lidocaine subcutaneously. The right radial artery was cannulated using Seldinger technique, the guidewire passed easily, following that we advanced a 5-Lao sheath dilator assembly, the wire and dilator were removed and sheath was flushed. Following that, 2 mg of verapamil along with 5000 unit heparin were given. Selective right and left coronary angiogram using a 6-Lao JR4 and JL 3.5 catheters. Left heart catheterization was performed using the JR4 catheter which across aortic valve The procedure was completed there was no complication. SELECTIVE CORONARY ANGIOGRAM: The right coronary artery: Large-caliber vessel and a dominant vessel. The RCA in the midportion has a tight lesion appeared to be in the range of 80%. Then the RCA distally bifurcates into PDA and PLV branches both appeared to be angiographically normal Left main: Is angiographically normal. Bifurcates into an LCx and LAD The left circumflex: Large caliber vessel nondominant vessel. The LCx has mild disease in the proximal portion after that gives rise into an OM1 which appeared to be normal. The left anterior descending artery: Large-caliber vessel. The mid LAD proximally appears to be normal. The mid LAD appears to have mild disease and gives rise into the first and second diagonal branches both appeared to be angiographically normal. The LAD after that the common medium caliber vessel was mild disease only. HEMODYNAMICS: LVEDP was about 10 mmHg was no significant gradient across aortic valve CONCLUSION: 1. Severe disease involving the mid RCA 2. Normal left-sided filling pressure POSTPROCEDURE MANAGEMENT: Medical treatment at this point giving the patient potential nickel ALLERGY and also low GFR. Consider PCI of the RCA if she has no significant medical reaction
[2023-03-30 17:03] VITALS: BP 165/72; PULSE 56
== END ==
LOC: CATHCVL 06:56
PROVIDERS: ATTEND Internal Medicine Interventional Cardiology
DX: I25.10 Atherosclerotic heart disease of native coronary artery without angina pectoris (principal); I10 Essential (primary) hypertension; E78.5 Hyperlipidemia, unspecified; F17.210 Nicotine dependence, cigarettes, uncomplicated; Z82.49 Family history of ischemic heart disease and other diseases of the circulatory system; Z79.899 Other long term (current) drug therapy
CPT/HCPCS: 93458; 76937; 80048; 85025; C1769; C1894; J2250; J2001; J1644; Q9967

== ENCOUNTER → 2023-04-07 | Outpatient (CLI) | payer MEDICARE, BC | END | disposition home or self-care (01) | LOC: LABWHC1 07:54 | PROVIDERS: ATTEND Internal Medicine Interventional Cardiology | DX: N28.9 Disorder of kidney and ureter, unspecified (principal) ==

== ENCOUNTER → 2023-05-15 | Outpatient (CLI) | payer MEDICARE, BC ==
[~2023-05-15] MED LIST changes: -ALPRAZolam 0.25 MG TAB PO PRN; -ALPRAZolam 0.5 MG TAB PO PRN; -ASPIRIN 325 MG TAB PO STA; +DENOSUMAB 60 MG/ML 1 ML SYRINGE SQ ONE; -HEPARIN SODIUM 1,000 UN/ML (10ML VL) IV ONE; -IOPAMIDOL-370 100ML BTL INJ ONE; -LIDOCAINE 1% INJ 10MG/ML (20 ML MDV) ONE; -LIDOCAINE 1% INJ 10MG/ML (30 ML VIAL-PF) SQ ONE; -MIDAZOLAM 2 MG/2 ML VIAL IVP ONE; -NITROGLYCERIN SL TABS 0.4 MG TAB SUBLINGUAL PRN; -RX INFO: IV CONTRAST WAS GIVEN 1 EACH MISC MISCELLANE PRN; -SODIUM CHLORIDE 0.9% 1,000 ML IV ONE; -SODIUM CHLORIDE 0.9% 1,000 ML IV SCH; -SODIUM CHLORIDE 0.9% 1,000 ML in EMPTY BAG 1 BAG IV SCH; -VERAPAMIL 2.5 MG/ML 2 ML AMP ONE; -VERAPAMIL SYRINGE (5 MG/10 ML) INTRAARTER ONE
[2023-05-15] MEDS: DENOSUMAB 60 MG/ML 1 ML SYRINGE SQ NR (09:03)
[2023-05-15 09:46] VITALS: BP 121/68; PULSE 64; RESP 16; TEMP 97.6
== END ==
LOC: PROCWHC3 08:55
PROVIDERS: ATTEND Family Medicine
DX: M81.0 Age-related osteoporosis without current pathological fracture (principal)
CPT/HCPCS: 96372; J0897

== ENCOUNTER → 2023-11-16 | Outpatient (CLI) | payer MEDICARE, BC ==
[2023-11-16 13:24] VITALS: BP 144/73; PULSE 70; RESP 16; TEMP 97.9
[2023-11-16] MEDS: DENOSUMAB 60 MG/ML 1 ML SYRINGE SQ NR (13:25)
== END ==
LOC: PROCWHC3 12:52
PROVIDERS: ATTEND Nurse Practitioner Family
DX: M85.80 Other specified disorders of bone density and structure, unspecified site (principal)
CPT/HCPCS: 96372; J0897

== ENCOUNTER → 2023-11-23 | Outpatient (CLI) | payer MEDICARE, BC ==
--- NOTE | 2023-12-15 10:03 | US ---
EXAMINATION TYPE: US kidneys/renal and bladder DATE OF EXAM: 11/23/2023 COMPARISON: NONE CLINICAL INDICATION: Female, 83 years old with history of N18.30 CHRONIC KIDNEY DISEASE, STAGE 3 UNSP ECIFIED; CKD 3 EXAM MEASUREMENTS: Right Kidney: 4.4 x 2.1 x 2.4 cm Left Kidney: 10.2 x 4.8 x 4.5 cm Right Kidney: Atrophic not well visualized. Left Kidney: multiple subcenter cystic areas seen. 3 peripelvic renal cysts . Cortical medullary diff erentiation is maintained. Bladder: anechoic Bilateral Jets seen: yes no evidence of left hydronephrosis or renal mass. No renal calculi visuali zed. The bladder is grossly unremarkable. IMPRESSION: 1. Poor visualization of the right kidney. 2. No evidence for acute process. 3. Multiple subcentimeter renal cysts. [facility], , 12/15/2023 10:00 AM
== END | disposition home or self-care (01) ==
LOC: RADUSWWP 12:57
PROVIDERS: ATTEND Family Medicine
DX: N18.30 Chronic kidney disease, stage 3 unspecified
CPT/HCPCS: 76770

== ENCOUNTER → 2023-12-25 | Outpatient (CLI) | payer MEDICARE, BC ==
--- NOTE | 2023-12-25 11:12 | US ---
EXAMINATION TYPE: US kidneys/renal and bladder DATE OF EXAM: 12/25/2023 COMPARISON: 11/23/23, CT: Today CLINICAL INDICATION: Female, 83 years old with history of N26.1 Right renal Atrophy; right renal atro phy TECHNIQUE: Grayscale and color Doppler imaging of the bilateral kidneys and urinary bladder: FINDINGS: EXAM MEASUREMENTS: Right Kidney: 5.6 x 3.7 x 3.4 cm Left Kidney: 11.1 x 4.4 x 5.2 cm Right Kidney: anechoic area seen inf measuring 1cm Left Kidney: Mild hydronephrosis seen. Bladder: wnl Bilateral Jets seen: Only the left jet was seen Mild left hydronephrosis. No obstructing calculus demonstrated on CT. No hydroureter on CT. No right hydronephrosis. Atrophy of the right kidney with loss of cortical medullary differentiation. Simple 1 cm cyst within the inferior pole of the right kidney. No left renal masses identified. Urinary bladd er is anechoic and appears within normal limits. Only the left ureteral jet identified. IMPRESSION: 1. Mild left hydronephrosis. No obstructing calculus or hydroureter on CT. UPJ stricture may be prese nt. 2. Atrophy of the right kidney. 3. Simple 1 cm right renal cyst. [facility], , 12/25/2023 11:10 AM
== END | disposition home or self-care (01) ==
LOC: RADUSWWP 09:55
PROVIDERS: ATTEND Internal Medicine Nephrology
CPT/HCPCS: 76770

== ENCOUNTER → 2023-12-25 | Outpatient (CLI) | payer MEDICARE, BC ==
--- NOTE | 2023-12-25 11:04 | CT ---
EXAMINATION TYPE: CT abdomen wo con DATE OF EXAM: 12/25/2023 COMPARISON: 08/31/2015 HISTORY: RIGHT RENAL ATROPHY CT DLP: 375 mGycm Examination of the solid and hollow viscera is limited given the lack of contrast. Unenhanced CT of t he abdomen was performed. FINDINGS: LUNG BASES: No evidence for nodule. No evidence for infiltrate. LIVER/GB: The gallbladder surgically absent. No space-occupying hepatic lesion. PANCREAS: No pancreatic mass identified. No inflammatory process seen. SPLEEN: No evidence for splenomegaly. No intrasplenic lesions seen. ADRENALS: No adrenal nodules identified. No evidence for thickening. KIDNEYS: Atrophic changes of the right kidney. Compensatory hypertrophy of the left kidney. No nephro lithiasis or renal calculi seen. BOWEL: Bowel loops are of normal caliber. Lymph nodes: No evidence for adenopathy greater than 1 cm. Abdominal aorta: Atheromatous changes seen. No evidence for aneurysm. Other: No significant abnormality. IMPRESSION: ATROPHIC CHANGES OF THE RIGHT KIDNEY OTHERWISE UNREMARKABLE STUDY. [facility], , 12/25/2023 11:02 AM
== END | disposition home or self-care (01) ==
LOC: RADCTMAIN 09:23
PROVIDERS: ATTEND Internal Medicine
DX: N26.1 Atrophy of kidney (terminal) (principal)
CPT/HCPCS: 74150